=== PATIENT | female | born 1985 | race Caucasian/White ===

== ENCOUNTER → 2022-07-26 | Outpatient (CLI) | payer OTHER ==
[2022-07-26 12:43] LABS: HCT 41.1 % (37.2-46.3); MCH 28.5 pg (27.0-32.0); MCHC 34.1 g/dL (32.0-37.0); MCV 83.5 fL (80.0-97.0); Mean Platelet Volume 9.4 fL (9.5-12.2); NRBC Per 100 WBC 0 /100 WBCS (0.0-0.0); Platelet Count 225 X 10*3/uL (140-440); RBC 4.92 X 10*6/uL (4.10-5.20); RDW 14.4 % (11.5-14.5); WBC 6.87 X 10*3/uL (4.50-10.00)
[2022-07-26 18:00] LABS: ALT 33 U/L (8-44); AST 21 U/L (13-35); African American GFR (CKD) 117.6 (60.0-200.0); Albumin 4.6 g/dL (3.8-4.9); Alkaline Phosphatase 79 U/L (41-126); BUN/Creat Ratio 13.43 Ratio (12.00-20.00); Blood Urea Nitrogen 10.1 mg/dL (9.0-27.0); Calcium 9.3 mg/dL (8.7-10.3); Carbon Dioxide 24.6 mmol/L (20.0-27.5); Chloride 107 mmol/L (96-109); Globulin 2.7 g/dL (1.6-3.3); Glucose 109 mg/dL (70-110); LDL Cholesterol,Calculated 172.8 mg/dL (0.0-131.0); Non-African American GFR(CKD) 101.5 (60.0-200.0); Potassium 4.1 mmol/L (3.5-5.5); Sodium 144 mmol/L (135-145); Total Protein 7.2 g/dL (6.2-8.2)
== END | disposition home or self-care (01) ==
LOC: LABWHC1 08:03
PROVIDERS: ATTEND Family Medicine
DX: Z00.00 Encounter for general adult medical examination without abnormal findings (principal)
CPT/HCPCS: 36415; 80053; 80061; 85027

== ENCOUNTER → 2023-01-24 | Outpatient (CLI) | payer OTHER ==
[2023-01-24 13:30] LABS: Basophils # (A) 0.03 X 10*3/uL (0.00-0.10); Basophils % (A) 0.4 %; Eosinophils # (A) 0.12 X 10*3/uL (0.04-0.35); Eosinophils % (A) 1.6 %; HCT 42.8 % (37.2-46.3); Immature Grans, Automated 0.4 %; Lymphocytes # (A) 2.24 X 10*3/uL (0.90-5.00); Lymphocytes % (A) 29.9 %; MCH 27.5 pg (27.0-32.0); MCHC 32.7 g/dL (32.0-37.0); MCV 84.1 fL (80.0-97.0); Mean Platelet Volume 9.7 fL (9.5-12.2); Monocytes # (A) 0.43 X 10*3/uL (0.20-1.00); Monocytes % (A) 5.7 %; NRBC Per 100 WBC 0 /100 WBCS (0.0-0.0); Neutrophils # (A) 4.63 X 10*3/uL (1.80-7.70); Platelet Count 231 X 10*3/uL (140-440); RBC 5.09 X 10*6/uL (4.10-5.20); WBC 7.48 X 10*3/uL (4.50-10.00)
[2023-01-24 13:35] LABS: ALT 63 U/L (8-44); AST 37 U/L (13-35); African American GFR (CKD) 122.6 (60.0-200.0); Albumin 4.7 g/dL (3.8-4.9); Albumin/Globulin Ratio 1.64 (1.60-3.17); Alkaline Phosphatase 76 U/L (41-126); BUN/Creat Ratio 11.47 Ratio (12.00-20.00); Blood Urea Nitrogen 8.3 mg/dL (9.0-27.0); Calcium 9.4 mg/dL (8.7-10.3); Carbon Dioxide 24.9 mmol/L (20.0-27.5); Chloride 101 mmol/L (96-109); Chol/HDL Ratio 5.93 Ratio; Globulin 2.9 g/dL (1.6-3.3); Glucose 142 mg/dL (70-110); LDL Cholesterol,Calculated 177.6 mg/dL (0.0-131.0); Non-African American GFR(CKD) 105.7 (60.0-200.0); Potassium 4.1 mmol/L (3.5-5.5); Sodium 138 mmol/L (135-145); Total Protein 7.6 g/dL (6.2-8.2)
== END | disposition home or self-care (01) ==
LOC: LABWHC1 08:11
PROVIDERS: ATTEND Family Medicine
DX: E78.5 Hyperlipidemia, unspecified (principal)
CPT/HCPCS: 36415; 80053; 80061; 85025

== ENCOUNTER → 2023-08-01 | Outpatient (CLI) | payer OTHER ==
[2023-08-01 12:30] LABS: HCT 40.6 % (37.2-46.3); HGB 13.6 g/dL (12.0-15.0); MCH 27.4 pg (27.0-32.0); MCHC 33.5 g/dL (32.0-37.0); MCV 81.7 FL (80.0-97.0); Mean Platelet Volume 9.8 FL (9.5-12.2); NRBC Per 100 WBC 0 X 10*3/uL (0.00-0.01); Platelet Count 218 X 10*3/uL (140-440); RBC 4.97 X 10*6/uL (4.10-5.20); RDW 14.2 % (11.5-14.5); WBC 6.96 X 10*3/uL (4.50-10.00)
[2023-08-01 12:39] LABS: ALT 60 U/L (8-44); AST 44 U/L (13-35); Albumin 4.5 g/dL (3.8-4.9); Albumin/Globulin Ratio 1.55 Ratio (1.60-3.17); Alkaline Phosphatase 82 U/L (41-126); BUN/Creat Ratio 8.43 Ratio (12.00-20.00); Blood Urea Nitrogen 5.9 mg/dL (9.0-27.0); Calcium 9.3 mg/dL (8.7-10.3); Chloride 100 mmol/L (96-109); Chol/HDL Ratio 5.95 Ratio; Globulin 2.9 g/dL (1.6-3.3); Glucose 126 mg/dL (70-110); Potassium 3.9 mmol/L (3.5-5.5); Sodium 137 mmol/L (135-145); Total Bilirubin 0.3 mg/dL (0.3-1.2); Total Protein 7.4 g/dL (6.2-8.2)
== END | disposition home or self-care (01) ==
LOC: LABWHC1 07:59
PROVIDERS: ATTEND Family Medicine
DX: Z00.00 Encounter for general adult medical examination without abnormal findings (principal); R73.01 Impaired fasting glucose
CPT/HCPCS: 36415; 80053; 80061; 83036; 85027

== ENCOUNTER → 2024-01-22 | Outpatient (CLI) | payer OTHER ==
--- NOTE | 2024-01-25 13:13 | MM ---
Reason for Exam: Screening (asymptomatic). Baseline mammogram. Patient History: Menarche at age 12. First Full-Term at age 23. Last menstrual period: 01/20/2024 Risk Values: Gwen 5 year model risk: 0.4%. NCI Lifetime model risk: 9.1%. Prior Study Comparison: Patient's first Mammogram. Tissue Density: There are scattered areas of fibroglandular density. Findings: Analyzed By CAD. Right breast: Focal asymmetry around 12:00 4 cm from nipple measuring 10 mm. Left breast: There is no suspicious group of microcalcifications or new suspicious mass. Overall Assessment: Incomplete: need additional imaging evaluation, BI-RAD 0 Management: Diagnostic Mammogram of the right breast. [facility] will attempt to contact patient to return for supplemental views and ultrasound if indicated. Patient should continue monthly self-breast exams. A clinical breast exam by your physician is recommended on an annual basis. This exam should not preclude additional follow-up of suspicious palpable abnormalities. Note on Gwen scores and lifetime risk: 1. A Gwen score greater than 3% is considered moderate risk. If this is the case, consider specialist referral to assess eligibility for a risk reducing agent. 2. If overall lifetime risk for the development of breast cancer is 20% or higher, the patient may qualify for future screening with alternating mammogram and breast MRI. Electronically signed and approved by: Héctor Aguirre DO
== END | disposition home or self-care (01) ==
LOC: RADMAMWWP 15:30
PROVIDERS: ATTEND Obstetrics & Gynecology
DX: Z12.31 Encounter for screening mammogram for malignant neoplasm of breast (principal)
CPT/HCPCS: 77063; 77067

== ENCOUNTER → 2024-01-27 | Outpatient (CLI) | payer OTHER ==
--- NOTE | 2024-01-27 07:46 | MM ---
Reason for Exam: Additional evaluation requested from abnormal screening. Last screening mammogram was performed less than 1 month ago. Patient History: Menarche at age 12. First Full-Term at age 23. Risk Values: Gwen 5 year model risk: 0.4%. NCI Lifetime model risk: 9.1%. Tissue Density: Right: The breasts are heterogeneously dense, which may obscure small masses. Findings: Analyzed By CAD. Under compression no persistent suspicious focal asymmetry or mass is evident. Mediolateral view appears unremarkable. Precautionary 6 month follow-up is recommended. No suspicious groups of microcalcifications, spiculated or lobular masses, architectural distortion or other secondary signs of malignancy are mammographically apparent. Overall Assessment: Probably benign, BI-RAD 3 Management: Diagnostic Mammogram of the right breast in 6 months. A negative mammogram report should not preclude additional follow up of suspicious palpable abnormalities. Patient should continue monthly self breast exam. A clinical breast exam by your physician is recommended on an annual basis and results should be correlated with mammographic findings. Note on Gwen scores and lifetime risk: 1. A Gwen score greater than 3% is considered moderate risk. If this is the case, consider specialist referral to assess eligibility for a risk reducing agent. 2. If overall lifetime risk for the development of breast cancer is 20% or higher, the patient may qualify for future screening with alternating mammogram and breast MRI. Electronically signed and approved by: Ivan Cruz D.O. Radiologis
== END | disposition home or self-care (01) ==
LOC: RADMAMWWP 07:24
PROVIDERS: ATTEND Obstetrics & Gynecology
DX: R92.331 Mammographic heterogeneous density, right breast (principal)
CPT/HCPCS: 77061; 77065

== ENCOUNTER → 2024-02-04 | Outpatient (CLI) | payer OTHER ==
[2024-02-04 15:35] LABS: BUN/Creat Ratio 13.14 Ratio (12.00-20.00); Blood Urea Nitrogen 9.2 mg/dL (9.0-27.0); Chol/HDL Ratio 6.92 Ratio; Glucose 163 mg/dL (70-110); LDL Cholesterol,Calculated 195.6 mg/dL (0.0-131.0)
[2024-02-04 15:36] LABS: ALT 84 U/L (8-44); AST 50 U/L (13-35); Albumin 4.7 g/dL (3.8-4.9); Albumin/Globulin Ratio 1.52 Ratio (1.60-3.17); Alkaline Phosphatase 97 U/L (41-126); Calcium 9.7 mg/dL (8.7-10.3); Chloride 103 mmol/L (96-109); Globulin 3.1 g/dL (1.6-3.3); Potassium 4.3 mmol/L (3.5-5.5); Sodium 144 mmol/L (135-145); Total Bilirubin 0.5 mg/dL (0.3-1.2); Total Protein 7.8 g/dL (6.2-8.2)
[2024-02-04 15:58] LABS: Basophils # (A) 0.04 X 10*3/uL (0.00-0.10); Basophils % (A) 0.7 %; Eosinophils # (A) 0.08 X 10*3/uL (0.04-0.35); Eosinophils % (A) 1.3 %; Lymphocytes # (A) 1.54 X 10*3/uL (0.90-5.00); Lymphocytes % (A) 25.4 %; MCH 27.4 pg (27.0-32.0); MCHC 33.3 g/dL (32.0-37.0); MCV 82.2 FL (80.0-97.0); Mean Platelet Volume 9.6 FL (9.5-12.2); Monocytes # (A) 0.28 X 10*3/uL (0.20-1.00); Monocytes % (A) 4.6 %; NRBC Per 100 WBC 0 X 10*3/uL (0.00-0.01); Neutrophils # (A) 4.11 X 10*3/uL (1.80-7.70); Neutrophils % (A) 67.8 %; Platelet Count 235 X 10*3/uL (140-440); RBC 5.11 X 10*6/uL (4.10-5.20); WBC 6.06 X 10*3/uL (4.50-10.00)
== END | disposition home or self-care (01) ==
LOC: LABWHC1 08:21
PROVIDERS: ATTEND Family Medicine
DX: E11.65 Type 2 diabetes mellitus with hyperglycemia (principal)
CPT/HCPCS: 36415; 80053; 80061; 82043; 82570; 83036; 84443; 85025

== ENCOUNTER → 2024-11-09 | Outpatient (CLI) | payer OTHER ==
[2024-11-09 10:41] LABS: Basophils # (A) 0.03 X 10*3/uL (0.00-0.10); Basophils % (A) 0.5 %; Eosinophils # (A) 0.11 X 10*3/uL (0.04-0.35); Eosinophils % (A) 1.8 %; HCT 39.1 % (37.2-46.3); HGB 12.5 g/dL (12.0-15.0); Lymphocytes # (A) 2.09 X 10*3/uL (0.90-5.00); Lymphocytes % (A) 35.1 %; MCH 25.7 pg (27.0-32.0); MCV 80.3 FL (80.0-97.0); Mean Platelet Volume 9.8 FL (9.5-12.2); Monocytes # (A) 0.36 X 10*3/uL (0.20-1.00); NRBC Per 100 WBC 0 X 10*3/uL (0.00-0.01); Neutrophils # (A) 3.35 X 10*3/uL (1.80-7.70); Neutrophils % (A) 56.3 %; Platelet Count 276 X 10*3/uL (140-440); RBC 4.87 X 10*6/uL (4.10-5.20); RDW 14.2 % (11.5-14.5); WBC 5.96 X 10*3/uL (4.50-10.00)
[2024-11-09 10:54] LABS: ALT 21 U/L (8-44); AST 21 U/L (13-35); Albumin 4.5 g/dL (3.8-4.9); Alkaline Phosphatase 87 U/L (41-126); BUN/Creat Ratio 11.86 Ratio (12.00-20.00); Blood Urea Nitrogen 8.3 mg/dL (9.0-27.0); Calcium 9.2 mg/dL (8.7-10.3); Carbon Dioxide 25.7 mmol/L (21.6-31.8); Chloride 103 mmol/L (96-109); Chol/HDL Ratio 3.73 Ratio; Glucose 124 mg/dL (70-110); LDL Cholesterol,Calculated 98.6 mg/dL (0.0-131.0); Potassium 4.3 mmol/L (3.5-5.5); Sodium 139 mmol/L (135-145); Total Bilirubin 0.5 mg/dL (0.3-1.2); Total Protein 7.5 g/dL (6.2-8.2); VLDL Calculation 16.28 mg/dL (5.00-40.00)
[2024-11-09 19:29] LABS: Microalbumin Creatinine Ratio <5 mg/g Cr (0-30)
== END | disposition home or self-care (01) ==
LOC: LABWHC1 07:38
PROVIDERS: ATTEND Family Medicine
DX: E11.9 Type 2 diabetes mellitus without complications (principal)
CPT/HCPCS: 36415; 80053; 80061; 82043; 82570; 83036; 84443; 85025